=== PATIENT | female | born 1975 | race Caucasian/White ===

== ENCOUNTER 2017-11-12 11:36 | Emergency (ER) | payer SELFPAY ==
[~2017-11-12] VITALS: Ht 154.9 cm; Wt 79.4 kg
[2017-11-12 12:04] VITALS: Ht 154.9 cm; Wt 79.4 kg
[2017-11-12 14:13] VITALS: BP 139/81
== END 2017-11-12 14:13 | disposition home or self-care (01) ==
LOC: ED 11:36
DX: S16.1XXA Strain of muscle, fascia and tendon at neck level, initial encounter (principal); V43.92XA Unspecified car occupant injured in collision with other type car in traffic accident, initial encounter; Y93.89 Activity, other specified; Y92.89 Other specified places as the place of occurrence of the external cause; Y99.8 Other external cause status
CPT/HCPCS: J1885

== ENCOUNTER 2018-12-12 21:50 | Emergency (ER) | payer SELFPAY ==
[~2018-12-12] VITALS: Ht 154.9 cm; Wt 75.7 kg
[2018-12-12 21:55] VITALS: Ht 154.9 cm; Wt 75.7 kg
[2018-12-12 22:44] LABS: BASOPHIL % 1.4 % (0-2); PLATELET COUNT 318 x10^3mcL (130-400); RED CELL DISTRIBUTION WIDTH 14.5 % (11.5-14.5)
[2018-12-12 22:54] LABS: CALCIUM 9.4 mg/dL (8.5-10.1); CARBON DIOXIDE 25.6 mmol/L (21-32); CHLORIDE SERUM 103 mmol/L (98-107); CREATININE SERUM 0.7 mg/dL (0.6-1.0); GFR1 > 60 mL/min; GLUCOSE SERUM 91 mg/dL (74-106); POTASSIUM SERUM 3.7 mmol/L (3.5-5.1); SODIUM SERUM 138 mmol/L (136-145)
[2018-12-12 22:59] LABS: ALBUMIN 3.5 g/dL (3.4-5.0); ALKALINE PHOSPHATASE 90 U/L (46-116); ALT/SGPT 42 U/L (14-59); AST/SGOT 20 U/L (15-37); BILIRUBIN TOTAL 0.33 mg/dL (0.20-1.00); TOTAL PROTEIN, SERUM 7.1 g/dL (6.4-8.2)
[2018-12-12 23:41] VITALS: BP 114/92
== END 2018-12-12 23:41 | disposition home or self-care (01) ==
LOC: ED 21:50
PROVIDERS: Emergency Medicine
DX: R07.89 Other chest pain (principal); M62.830 Muscle spasm of back; R11.10 Vomiting, unspecified; Z90.710 Acquired absence of both cervix and uterus
CPT/HCPCS: 36415; J1885; Q0092; Q0162